=== PATIENT | female | born 1995 | race Caucasian/White ===

== ENCOUNTER 2018-07-04 18:22 | Emergency (ER) | payer OTHER ==
[~2018-07-04] VITALS: Ht 170.2 cm; Wt 113.4 kg
[~2018-07-04 18:22] MED LIST: ACETAMINOPHEN-1 EAC1 PO; ADVAIR 100-501 EACH; ALBUTEROL2.5 MG/3 M IH; AZITHROMYCIN 2250 MG PO; BENTYL20 MG PO; BIRTH CONTROL; CELEXA 20 MG TA20 MG PO; COMBIVENT INH; FLEXERIL PO; FLOVENT DISKUS50 MCG IH; IBUPROFEN 800800 M1 PO; IBUPROFEN 800800 MG PO; KEFLEX500 MG PO; LEXAPRO 10 MG T10 M2; MEDROLDOSEPACK PO; NASONEX17 GM; NEURONTIN 300300 M1 PO; PEPCID AC20 M1 PO; PHENERGAN 25 MG25 M1 PO; PREDNISONE 10 M10 M1 PO; PREDNISONE 20 M20 M1 PO; PRILOSEC 20 MG20 MG; PRILOSEC20 MG PO; PROAIR HFA8.5 GM; PROAIR HFA8.5 GM IH; PROAIR HFA8.5 GM INH; PROMETHAZINE D480 ML PO; QVAR HFA 880 MCG/UN1 INH; SINGULAIR 10 MG10 M1 PO; TESSALON PERLE100 MG PO; TRAMADOL 50 MG50 MG; ULTRAM 50MG TAB50 MG PO; VISTARIL 25 MG25 M1 PO; WELLBUTRIN SR150 MG PO; ZPAK PO; ZYRTEC; ZYRTEC10 M2 PO
[2018-07-04 18:32] VITALS: BP 139/58
[2018-07-04] MEDS ORDERED: PRENATAL PO (18:37)
[2018-07-04] MEDS ORDERED: AUGMENTIN 875-1 EACH PO (18:47)
== END 2018-07-04 18:56 | disposition home or self-care (01) ==
LOC: M.ERS 18:22
DX: S61.251A Open bite of left index finger without damage to nail, initial encounter (principal); S61.250A Open bite of right index finger without damage to nail, initial encounter; S61.252A Open bite of right middle finger without damage to nail, initial encounter; J45.909 Unspecified asthma, uncomplicated; F32.9 Major depressive disorder, single episode, unspecified; F41.9 Anxiety disorder, unspecified; K21.9 Gastro-esophageal reflux disease without esophagitis; G43.909 Migraine, unspecified, not intractable, without status migrainosus; Z88.1 Allergy status to other antibiotic agents; Z87.01 Personal history of pneumonia (recurrent); W54.0XXA Bitten by dog, initial encounter; Y93.89 Activity, other specified; Y92.89 Other specified places as the place of occurrence of the external cause; Y99.8 Other external cause status

== ENCOUNTER 2019-11-22 19:39 | Emergency (ER) | payer OTHER ==
[~2019-11-22] VITALS: Ht 167.6 cm; Wt 122.5 kg
[~2019-11-22 19:39] MED LIST changes: +AUGMENTIN 875-1 EACH PO; +PRENATAL PO; +ZOLOFT50 MG PO
[2019-11-22] MEDS ORDERED: CYMBALTA30 MG PO (19:50)
[2019-11-22 20:14] LABS: HEMOGLOBIN 13.9 gm/dL (12.0-15.0); MCH 30.1 pg (26.0-34.0); MCHC 34.8 g/dL (28.0-37.0); MCV 86.6 fL (80.0-100.0); MPV 9.2 fl. (7.2-11.1); NUCLEATED RBCS 0 /100WBC; PLATELET COUNT* 298 thou/uL (150-400); RBC 4.61 mil/uL (4.20-5.00); RDW-CV 13.1 % (10.5-14.5); WBC 14.2 thou/uL (4.0-11.0)
[2019-11-22 20:18] LABS: INFLUENZA A ANTIGEN Negative (Negative); INFLUENZA B ANTIGEN Negative (Negative)
[2019-11-22 20:22] LABS: CREATININE 0.9 mg/dL (0.6-1.3); POTASSIUM 3.7 mmol/L (3.5-5.1)
[2019-11-22 20:32] LABS: ABSOLUTE LYMPHOCYTES 1.1 thou/uL (0.8-5.3); ABSOLUTE NEUTROPHILS 12.1 thou/uL (1.6-8.1)
[2019-11-22 20:33] LABS: PLATELET ESTIMATE ADEQUATE
[2019-11-22 20:41] LABS: URINE BILIRUBIN NEGATIVE (Negative); URINE BLOOD NEGATIVE (Negative); URINE CLARITY SL CLOUDY; URINE COLOR YELLOW; URINE GLUCOSE-RANDOM NEGATIVE (Negative); URINE KETONES NEGATIVE (Negative); URINE LEUKOCYTES-REFLEX TRACE (Negative); URINE NITRITE-REFLEX NEGATIVE (Negative); URINE PROTEIN NEGATIVE (Negative); URINE SPECIFIC GRAVITY 1.025 (1.005-1.030); URINE UROBILINOGEN 0.2 E.U./dl (0.2-1.0)
[2019-11-22 20:45] LABS: SQUAMOUS >10 Many /LPF (0-3)
[2019-11-22 20:49] LABS: BACTERIA-REFLEX >30 Many /HPF (None Seen); URINE RBC 0-2 Rare /HPF (0-2); URINE WBC-REFLEX 6-15 Few /HPF (0-5)
[2019-11-22 20:50] LABS: CASTS None Seen /LPF (None Seen); CRYSTALS None Seen /LPF (None Seen); MUCUS 0-3 Light strn/LPF (None Seen)
[2019-11-22] MEDS ORDERED: LEVAQUIN 500 M500 M2 PO (21:41)
[2019-11-22] MEDS ORDERED: TRAMADOL 50 MG50 MG PO (21:42)
[2019-11-22] MEDS ORDERED: ONDANSETRON HCL4 M2 PO (21:42)
[2019-11-22 22:27] VITALS: BP 109/71
== END 2019-11-22 22:47 | disposition home or self-care (01) ==
LOC: M.ERS 19:39
PROVIDERS: Nurse Practitioner Family
DX: J06.9 Acute upper respiratory infection, unspecified (principal); N39.0 Urinary tract infection, site not specified; G43.909 Migraine, unspecified, not intractable, without status migrainosus; K21.9 Gastro-esophageal reflux disease without esophagitis; J45.909 Unspecified asthma, uncomplicated; Z87.01 Personal history of pneumonia (recurrent); Z98.890 Other specified postprocedural states; Z88.1 Allergy status to other antibiotic agents

== ENCOUNTER 2021-01-29 00:02 | Emergency (ER) | payer OTHER ==
[~2021-01-29] VITALS: Ht 165.1 cm; Wt 124.3 kg
[~2021-01-29 00:02] MED LIST changes: +CYMBALTA30 MG PO; +LEVAQUIN 500 M500 M2 PO; +ONDANSETRON HCL4 M2 PO; +TRAMADOL 50 MG50 MG PO
[2021-01-29] MEDS ORDERED: ADDERALL 10 MG10 MG PO (00:12)
[2021-01-29] MEDS ORDERED: CYMBALTA30 MG PO (00:13)
[2021-01-29] MEDS ORDERED: BACTRIM DS TAB1 EACH PO (02:12)
[2021-01-29 02:14] VITALS: BP 111/71
--- NOTE | 2021-01-30 17:32 | EKG ---
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: : 1995 Requested By: Catie Long Order Number: [id number] Elmo ADAMS: Jesse Kimbrough Measurements Intervals [place] Rate: 102 P: 21 ID: [id number] QRS: 16 QRSD: 95 T: 14 QT: 345 QTc: 450 Interpretive Statements Sinus tachycardia Compared to ECG 06/07/2012 22:46:53 Sinus rate has increased Sinus arrhythmia no longer present Early repolarization no longer present Electronically Signed On 01-30-2021 17:31:59 CDT by Jesse Kimbrough [email or web address] <ELECTRONICALLY SIGNED> By: Jesse Kimbrough MD, [facility] 01/30/21 1731 002 Jesse Kimbrough MD, [facility] /EPI
== END 2021-01-29 02:14 | disposition home or self-care (01) ==
LOC: M.ERS 00:02
DX: T78.49XA Other allergy, initial encounter (principal); R00.2 Palpitations; R68.83 Chills (without fever); G43.909 Migraine, unspecified, not intractable, without status migrainosus; J45.909 Unspecified asthma, uncomplicated; F32.9 Major depressive disorder, single episode, unspecified; F41.9 Anxiety disorder, unspecified; K21.9 Gastro-esophageal reflux disease without esophagitis; F90.9 Attention-deficit hyperactivity disorder, unspecified type; Z98.890 Other specified postprocedural states; Z79.899 Other long term (current) drug therapy; Z88.1 Allergy status to other antibiotic agents; X58.XXXA Exposure to other specified factors, initial encounter

== ENCOUNTER 2021-10-08 15:30 | Emergency (ER) | payer OTHER ==
[~2021-10-08 15:30] MED LIST changes: +ADDERALL 10 MG10 MG PO; +BACTRIM DS TAB1 EACH PO
== END 2021-10-08 16:30 | disposition left against medical advice (07) ==
LOC: M.ERS 15:30
DX: R42 Dizziness and giddiness (principal); Z53.21 Procedure and treatment not carried out due to patient leaving prior to being seen by health care provider